=== PATIENT | male | born 1975 | race Caucasian/White ===

== ENCOUNTER → 2016-09-30 | Day surgery (SDC) | payer OTHER ==
[~2016-09-30] MED LIST: ACETAMINOPHEN 1000 MG/100 ML VIAL IV ONE; ACETAMINOPHEN/HYDROcodone 325 MG/5 MG TAB ONE; BUPIVACAINE/EPINEPHRINE 0.25% 50 ML VIAL ONE; KETOROLAC TROMETHAMINE 30 MG/ML (IVP) VIAL IV PUSH ONE; LACTATED RINGER'S 1000 ML INJ 1,000 ML ONE; LIDOCAINE 1%/EPINEPHrine 1:100,000 SOLN 30 ML VIAL ONE; MEPERIDINE HCL 25 MG/ML VIAL ONE; MIDAZOLAM HCL 2 MG/2 ML VIAL ONE; ONDANSETRON HCL 4 MG/2 ML VIAL IV PUSH ONE; PROPOFOL 200 MG/20 ML AMP IV ONE; SODIUM CHLOR 0.9% 250 ML INJ 250 ML IV ONE; VANCOMYCIN HCL 1000 MG VIAL ONE; ceFAZolin INJ 1,000 MG VIAL ONE
--- NOTE | 2016-10-20 07:25 | MP ---
cc: HUMBERTO ASHTON M.D. [employer] DATE OF SURGERY 09/30/2016 PROCEDURE Exploration left posterior chest wall. PREOPERATIVE DIAGNOSIS Left chest wall soft tissue mass. POSTOPERATIVE DIAGNOSIS Left chest wall discomfort with muscle strain. ANESTHESIA LMA SURGEON Humberto Ashton MD ESTIMATED BLOOD LOSS Less than 10 mL FLUIDS 1150 mL crystalloid COMPLICATIONS None DRAINS None SPECIMEN None PROCEDURE AND FINDINGS No evidence of lipoma or other soft tissue mass. Fascia slightly tight around muscle, but no obvious pathology, including no obvious bursa in the area of discomfort. PROCEDURE IN DETAIL The patient was seen in the holding area and the area in question marked by the undersigned and confirmed by the patient. The patient was taken to the operating room and placed on the operating table in the supine position. After an adequate level of laryngeal mask anesthesia was instituted, he was placed with the right side down on a beanbag. The skin was sterilely prepped and draped. Time-out was taken confirming the correct patient, site, and procedure to be performed. Oblique incision was made directly over the area circled by the patient and confirmed by the undersigned. Dissection was carried down through the subcutaneous tissues and no evidence of a lipoma was noted. There was no other soft tissue mass. Muscle fibers were split and retracted. No pathology was noted in this area. Dissection was carried all the way down to the chest wall and the ribs were examined as were the intercostal muscles. These were all intact and did not appear to have any pathology. As such, after opening the more superficial fascia, no further exploration was accomplished as it was felt that this would not assist with his symptoms and would not be helpful in diagnosis. At this point, the wound was closed in two layers with running 3-0 Vicryl. The skin was closed with 5-0 PDS in a running subcuticular fashion and the wound was dressed with Steri-Strips. The patient was taken back to the recovery room in stable condition. Sponge, needle and instrument counts were reported to be correct. MD SAWYER Stephenson/DJL /12:41 PM /7:14 AM MARTHA
== END | disposition home or self-care (01) ==
LOC: ESDC 09:28
PROVIDERS: ATTEND Surgery Trauma Surgery
DX: S29.011A Strain of muscle and tendon of front wall of thorax, initial encounter (principal)
CPT/HCPCS: 00400; 21556; J0131; J0690; J1885; J2175; J2250; J2405; J3010; J3370; J7050; J7120